=== PATIENT | female | born 1970 | race Caucasian/White ===

== ENCOUNTER 2018-04-14 09:39 | Emergency (ER) | payer OTHER ==
[2018-04-14 10:14] VITALS: BP 140/85
--- NOTE | 2018-04-14 10:49 | RAD ---
INDICATION: Left hand injury COMPARISON: None TECHNIQUE: AP, lateral, and oblique views were obtained. FINDINGS: The bony structures, joint spaces, and soft tissues are normal for age. IMPRESSION: NO ACUTE BONY FINDINGS.
--- NOTE | 2018-04-14 12:11 | UC ---
Hand/Wrist HPI - HPI Summary HPI Summary: A client pulled her left hand during work and she heard a "pop". Patient has pain on the hand proximal to pinky finger. She can move wrist and arm without problem - History Of Current Complaint Chief Complaint: UCUpperExtremity Stated Complaint: LEFT HAND INJURY - W/C Time Seen by Provider: 04/14/18 10:27 Hx Obtained From: Patient Hx Last Menstrual Period: 03/24/18 ?: No Onset/Duration: Sudden Onset, Lasting Hours Severity Initially: Moderate Severity Currently: Severe Pain Intensity: 8 Character Of Pain: Dull, Aching Aggravating Factor(s): Flexion Alleviating Factor(s): Rest, Ice Associated Signs And Symptoms: Positive: Negative Related History: Dominant Hand Right - Allergies/Home Medications Allergies/Adverse Reactions: Allergies Allergy/AdvReac Type Severity Reaction Status Date / Time No Known Allergies Allergy Verified 04/14/18 10:11 PMH/Surg Hx/FS Hx/Imm Hx Previously Healthy: Yes Respiratory History: Asthma - Surgical History Surgical History: Yes Surgery Procedure, Year, and Place: 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 carpal tunnel right side - Family History Known Family History: Positive: None - Social History Alcohol Use: None Substance Use Type: None Smoking Status (MU): Never Smoked Tobacco - Immunization History Most Recent Influenza Vaccination: yes Most Recent Tetanus Shot: more than 10 yrs Review of Systems Constitutional: Negative Skin: Negative Eyes: Negative ENT: Negative Respiratory: Negative Cardiovascular: Negative Musculoskeletal: Arthralgia, Myalgia All Other Systems Reviewed And Are Negative: Yes Physical Exam Triage Information Reviewed: Yes Appearance: Well-Appearing, No Pain Distress, Obese Vital Signs: Initial Vital Signs Temp 98.9 F 04/14/18 10:08 Pulse 82 04/14/18 10:08 Resp 16 04/14/18 10:08 BP 140/85 04/14/18 10:08 Pulse Ox 100 04/14/18 10:08 Vital Signs Reviewed: Yes ENT: Positive: Hearing grossly normal Neck: Positive: Supple Respiratory: Positive: Chest non-tender, Lungs clear Cardiovascular: Positive: Pulses Normal, Brisk Capillary Refill Abdomen Description: Positive: Nontender Musculoskeletal: Positive: Strength Intact, No Edema, ROM Limited @ - flexion of fingers left hand. Tender on palpation along 5th metacarpal area. No edema or visible deformity, pulses ++, capillary refill brisk Hand/Wrist Course/Dx - Course Course Of Treatment: xray negative for fracture, RICE, wrist splint and sling fitted , f/u with PCP - Differential Dx/Diagnosis Provider Diagnoses: Hand sprain Discharge - Sign-Out/Discharge Documenting (check all that apply): Patient Departure All imaging exams completed and their final reports reviewed: Yes - Discharge Plan Condition: Stable Disposition: HOME Patient Education Materials: Hand Sprain (ED), R.I.C.E. Treatment (ED) Forms: *Work Release Referrals: Fidel Mascorro MD [Primary Care Provider] - Additional Instructions: please follow up with your primary care for care of your hand sprain - Billing Disposition and Condition Condition: STABLE Disposition: Home
== END 2018-04-14 12:15 | disposition home or self-care (01) ==
LOC: UCCORT 09:39
DX: S63.92XA Sprain of unspecified part of left wrist and hand, initial encounter (principal); Y04.8XXA Assault by other bodily force, initial encounter; Y93.9 Activity, unspecified; Y92.9 Unspecified place or not applicable; Y99.0 Civilian activity done for income or pay
CPT/HCPCS: 99203; G0463